=== PATIENT | male | born 1995 | race Caucasian/White ===

== ENCOUNTER 2021-03-09 16:13 | Inpatient (IN) | payer MEDICAID, SELFPAY ==
[2021-03-09 16:23] VITALS: BP 144/100; PULSE 84; RESP 18; TEMP 35.9; O2SAT 94; BMI 24.9
--- NOTE | 2021-03-09 19:56 | EX.ED.DYSGE1 ---
HPI History of Present Illness Chief Complaint: Substance Abuse Narrative Narrative: Patient went through detox for opiates about 2 years ago he was clean for about a year and then relapsed. He wants detox. He last used today, he was try to detox on his own but could not and thus used prior to arrival. [facility] Medical History (Updated 03/09/21 @ 19:[address] Arturo Calderon MD) Drug abuse, opioid type Hepatitis C Home Medications NK 08/21/19 [History Last Taken Unknown] Allergy/AdvReac Type Severity Reaction Status Date / Time No Known Allergies Allergy Verified 03/09/21 16:25 Social History Smoking Status: Current every day smoker tobacco type: cigarettes ROS ROS ED ROS Narrative Past medical history: Reviewed, significant for opiate addiction otherwise none Medications: Reviewed Social history: Noncontributory Review of systems: All systems negative except as indicated General: No fever Eyes: No visual changes ENT: No upper airway congestion, normal voice Neck: No neck pain Cardiovascular: No chest pain Respiratory: No shortness of breath or cough Gastrointestinal: No abdominal pain, nausea vomiting or diarrhea Genitourinary: No dysuria Musculoskeletal: Denies myalgias no difficulty with ambulation. He has antecubital tracks which is where he injects Skin: No rash Neurological: No memory loss, confusion or any focal weakness Psych: Slightly anxious Hematologic: No easy bleeding or easy bruising EXAM Physical Exam Narrative Exam Narrative: Physical exam General: Patient does not appear in any distress. Head: Normocephalic, Atraumatic Eyes: Conjunctiva not pale ENT: Moist mucous membranes Neck: Supple, Nontender, No lymphadenopathy Cardiovascular: Regular rate, Regular rhythm. I auscultated and there are no murmurs. Respiratory: No distress, CTA bilaterally Abdomen: Soft, Nontender, Nondistended Back: Nontender, Normal Inspection. Negative for: CVA tenderness Extremities: Antecubital regions show track iniguez, however there is no sign of infection or cellulitis. Skin: Normal color, No rash Neurological: Alert, Normal Strength, Normal Sensation Psychological: Normal affect Const Vital Signs: 03/09/21 16:23 Temperature 96.7 F L Temperature Source Temporal Pulse Rate 84 Respiratory Rate 18 Blood Pressure 144/100 H Blood Pressure Mean 114 Pulse Ox 94 Oxygen Delivery Method Room Air MDM MDM MDM Narrative Medical decision making narrative: Patient will be medically cleared now attempt to find hospital bed for him. Discharge Plan Triage Chief Complaint: Substance Abuse ED Provider: Arturo Calderon Dx/Rx/DC Orders Clinical Impression: Opiate addiction Prescriptions: No Action NK RF: 0 Primary Care Provider: Care Physician,No Primary Referrals: Care Physician,No Primary [Primary Care Provider] - Disposition Disposition: Acute Care Hospital [facility]
[2021-03-09 19:58] LABS: Absolute Lymphocyte Count 2.83 X10^3/uL (0.83-4.51); Absolute Neutrophil Count 5.1 X10^3/uL (2.0-7.7); Basophil# 0.04 X10^3/uL; Basophil% 0.4 % (0-1); Eosinophil# 0.21 X10^3/uL; Eosinophils% 2.3 % (0-5); Hematocrit 47.9 % (40-54); Hemoglobin 15.9 g/dL (13.0-16.5); Lymphocyte # 2.83 X10^3/ul (0.83-4.51); Lymphocyte % 30.6 % (19-41); Mean Corp Hgb Conc 33.2 g/dL (32-36); Mean Corpuscular Hgb 32.1 pg (27.0-32.0); Mean Corpuscular Volume 96.6 fL (80-94); Mean Platelet Vol. 10.4 fl (6.2-12.0); Monocyte# 1.09 X10^3/uL; Monocyte% 11.8 % (0-10); NRBC Flagged by Analyzer 0 % (0-5); Neutrophil # 5.07 X10^3/uL (2.7-7.7); Neutrophil % 54.7 % (47-70); Platelet Count 241 K/mm3 (150-450); RBC Distribution Width CV 11.7 % (11.6-14.6); RBC Distribution Width SD 41.6 fl (35.1-43.9); Red Blood Count 4.96 M/mm3 (4.6-6.2); White Blood Count 9.3 K/mm3 (4.4-11.0)
[2021-03-09 20:11] LABS: AST(SGOT) 29 U/L (15-37); Alanine Aminotransfer ALT/SGPT 56 U/L (16-61); Albumin, Serum 3.8 g/dL (3.2-5.0); Alkaline Phosphatase 75 U/L (45-117); Anion Gap 5 (5-15); BUN 7 mg/dL (7-18); BUN/Creat Ratio 9.1 RATIO (10-20); Calcium,Total 9.4 mg/dL (8.5-10.1); Chloride 104 mmol/L (98-107); Creatinine, Serum 0.77 mg/dL (0.70-1.30); EST Glomerular Filtration Rate 129 mL/min (>60); Est Glom Filt Rate - Afr Amer 156 mL/min (>60); Estimated Creatinine Clearance 120.66 ml/min; Glucose 95 mg/dL (74-106); Potassium 3.7 mmol/L (3.5-5.1); Protein, Total 7.8 g/dL (6.4-8.2); Sodium Level 139 mmol/L (136-145)
--- NOTE | 2021-03-09 20:34 | HP.PCM.HOS_ITS ---
HPI - General General Date of Admission: 03/09/21 Date of Service: 03/09/21 Chief Complaint: Opiate withdrawal HPI Narrative The patient is a 25 y/o M w/ PMHx: Polysubstance abuse including IV Fentanyl, Hepatitis C untreated, Tobacco use who presents to the [facility] ED on 03/09/21 w/ noted acute opiate withdrawal onset starting on day of presentation following last dose in the early evening given his worsening symptoms normally using currently least half a gram daily over the last 3 weeks since relapse with onset of dope sickness including abdominal pain/cramping, generalized body aches and pains, restlessness, agitation, nausea. Patient interested in attaining clean status and previously had been clean for approximately 1 year however he relapsed as noted over the last 3 weeks with last detox 2 years prior to current presentation. He notes that unfortunately had several events occur causing him to use drugs again. Work-up in the ED included T 96.7, heart rate 84, BP 144/100, respiratory rate 18, 94% on room air, CBC with WBC 9.3, hemoglobin 15.9, platelet 241 without marked shift, CMP unremarkable, UDS pending upon requested evaluation of patient, ethyl alcohol 4. Given noted hypoxia in the ED with oxygenation 94% requested also COVID testing be obtained to be cautious. [facility] Medical History Drug abuse, opioid type Hepatitis C Tobacco use Home Medications NK 08/21/19 [History Last Taken Unknown] Allergy/AdvReac Type Severity Reaction Status Date / Time No Known Allergies Allergy Verified 03/09/21 16:25 Family History (Updated 03/09/21 @ 21:[address] Gillian Schneider MD) Mother Anxiety and depression Cocaine abuse Alcohol abuse Father Anxiety and depression Cocaine abuse Alcohol abuse Surgical History (Updated 03/09/21 @ 21:[address] Gillian Schneider MD) No history of previous surgery Social History (Updated 03/09/21 @ 21:[address] Gillian Schneider MD) household members: family Smoking Status: Current every day smoker tobacco type: cigarettes Smoking packs per day: 1 Smoking cigarettes per day: 20.0 alcohol intake: never substance use type: IV drugs and other details: IV Fentanyl. ROS ROS Narrative Admission Review of Systems: CONSTITUTIONAL: No weight loss, fever, chills, + weakness or fatigue. HEENT: Eyes: No visual loss, blurred vision, double vision or yellow sclerae. Ears, Nose, Throat: No hearing loss, sneezing, congestion, runny nose or sore throat. SKIN: No rash or itching, lesions, wounds. CARDIOVASCULAR: No chest pain, chest pressure or chest discomfort, palpitations, edema, orthopnea, syncopal events. RESPIRATORY: No shortness of breath, cough or sputum, wheezing, hemoptysis. GASTROINTESTINAL: + anorexia, nausea, abdominal cramping, No vomiting or diarrhea, melena, BRBPR. GENITOURINARY: No dysuria, frequency, urgency or retention. NEUROLOGICAL: + Restless legs, No headache, dizziness, syncope, paralysis, ataxia, numbness or tingling in the extremities, focal weakness, change in bowel or bladder control, seizure. MUSCULOSKELETAL: + muscle, back pain, joint pain or stiffness. HEMATOLOGIC: No anemia, bleeding or bruising. LYMPHATICS: No enlarged nodes. No history of splenectomy. PSYCHIATRIC: + history of depression or anxiety. Agitation. ENDOCRINOLOGIC: No reports of sweating, cold or heat intolerance. No polyuria or polydipsia. ALLERGIES: No history of asthma, hives, eczema or rhinitis. Vital Signs Vital Signs Vital Signs: 03/09/21 16:23 Temperature 96.7 F L Temperature Source Temporal Pulse Rate 84 Respiratory Rate 18 Blood Pressure 144/100 H Blood Pressure Mean 114 Pulse Ox 94 Oxygen Delivery Method Room Air Weight Weight: 145 lb Body Mass Index (BMI) 24.9 Physical Exam Narrative Physical Examination: General: Awake, alert, oriented x 3 and cooperative, seated upright in the ED bed in no apparent distress, restless, mildly agitated. Skin: Normal color, normal turgor, no icterus, no cyanosis except various staged ecchymoses, tracks. HEENT: AT/NC, EOMI, PERRLA, mildly dry MM, no carotid bruits or JVD noted. Lungs: Diminished, greater bases, no rales, ronchi or wheezing. Heart: Mildly tachycardic with regular rhythm; no gallop, rub audible. Abdomen: Soft, mild discomfort with generalized palpation, ND, mildly hyperactive BS, no marked evidence of HSM. Extremities: No cyanosis, clubbing, or edema. Neurological: Patient awake, alert, oriented as noted, cognitive function intact; pupils equally reactive to light and accommodation, cranial nerves II- XII grossly normal, moving all 4 extremities, no focal deficits, strength preserved, mildly restless and agitated. Psychiatric: Affect appears fatigued, no acute evidence of depressive or anxiety feelings. Results Lab / Micro Data Result Diagrams: 03/09/21 19:46 03/09/21 19:46 Labs: Laboratory Results - last 24 hr 03/09/21 19:46: WBC 9.3, RBC 4.96, Hgb 15.9, Hct 47.9, MCV 96.6 H, MCH 32.1 H, MCHC 33.2, RDW Std Deviation 41.6, RDW Coeff of Fredy 11.7, Plt Count 241, MPV 10.4, Immature Gran % (Auto) 0.200, Neut % (Auto) 54.7, Lymph % (Auto) 30.6, Hall % (Auto) 11.8 H, Eos % (Auto) 2.3, Baso % (Auto) 0.4, Absolute Neuts (auto) 5.1, Absolute Lymphs (auto) 2.83, Nucleated RBC % 0 03/09/21 19:46: Sodium 139, Potassium 3.7, Chloride 104, Carbon Dioxide 30.0, Anion Gap 5, BUN 7, Creatinine 0.77, Estim Creat Clear Calc 120.66, Est GFR (MDRD) Af Amer 156, Est GFR (MDRD) Non-Af 129, BUN/Creatinine Ratio 9.1 L, Glucose 95, Calcium 9.4, Total Bilirubin 0.40, AST 29, ALT 56, Alkaline Phosphatase 75, Total Protein 7.8, Albumin 3.8, Globulin 4.0, Albumin/Globulin Ratio 1.0 03/09/21 19:46: Ethyl Alcohol 4.0 03/09/21 20:25: Ur Drug Screen Comment Assessment & Plan Assessment/Plan (1) Opiate withdrawal: PLAN: The patient is a 25 y/o M w/ PMHx: Polysubstance abuse including IV Fentanyl, Hepatitis C, Tobacco use who presents to the [facility] ED on 03/09/21 w/ noted acute opiate withdrawal onset starting on day of presentation following last dose in the early evening prior to ED presentation. 1. Acute Opiate Withdrawal: Will admit to [place], routine labs including CBC, CMP, urine for drug screen obtained in the ED, will initiate and continue on protocol with tapering course of Subutex, as needed tylenol, ibuprofen, bowel regimen, gabapentin, Bentyl, Vistaril, methocarbamol, clonidine, PRN nightly trazodone for insomnia, IV fluids, IV antiemetics. Once patient clinically improved and completion of taper nearing will plan consultation with case management for transition to next level of rehabilitation care. 2. Polysubstance Abuse, IVDA Hx, History of Hepatitis C, Chronic: Patient currently not candidate for hep C treatment currently as needs to be clean, sober x 6 months, documented attendance NA or AA meetings, counseling and ongoing negative drug screens. Patient is interested in obtaining treatment once he is able. HIV, hepatitis panel to assess for co-infection pending. Encouraged PCP establishment and follow-up. 3. Tobacco Abuse: Encouraged cessation, inpatient consultation per RT, NR if desired. 4. DVT prophylaxis: Low risk, encourage ambulation. Charges/Coding Visit Charges Inpatient E&M: 23142 Init Hosp L2
[2021-03-09 20:50] LABS: Amphetamine Urine VISTA NEGATIVE (<1000 ng/mL); Barbiturate Urine VISTA NEGATIVE (< 200 ng/mL); Benzodiazepine Urine VISTA NEGATIVE (< 200 ng/mL); Cocaine Urine VISTA NEGATIVE (< 300 ng/mL); Ecstacy Urine VISTA POSITIVE (< 500 ng/mL); Methadone Urine VISTA NEGATIVE (< 300 ng/mL); PCP Urine VISTA NEGATIVE (< 25 ng/mL); THC Urine VISTA POSITIVE (< 50 ng/mL); Vista UDS pH Range 5
[2021-03-09 21:07] VITALS: BP 140/90; PULSE 88; RESP 16; TEMP 36.2; O2SAT 95
[2021-03-09 21:35] VITALS: BMI 23.1
[2021-03-09 21:49] LABS: HIV - WCH Non-Reactive (Nonreactive)
[2021-03-09 22:01] VITALS: BP 136/86; PULSE 72; RESP 16; TEMP 36.7; O2SAT 99
--- NOTE | 2021-03-09 22:03 | PCS.PANDOC ---
PANDEMIC DOCUMENTATION INITIATED: Date: 12/02/2020 Time: 190
--- NOTE | 2021-03-09 22:03 | PCS.PANDOC ---
PANDEMIC DOCUMENTATION INITIATED: Date: 12/02/2020 Time: 190
[2021-03-09] MEDS: traZODone 100 MG Tablet PO (23:39)
[2021-03-10] VITALS (7 sets, daily range): BP systolic 84–108; BP diastolic 44–64; PULSE 67–78; RESP 14–16; TEMP 36.4–37.2; O2SAT 98–100
[2021-03-10] MEDS: Methocarbamol 750 MG Tablet 1500 MG PO (05:23)
--- NOTE | 2021-03-10 07:43 | PCM.PN.HOSP ---
Subjective Subjective Patient tremors become better. Uses IV opioids. History of chronic hepatitis C. Objective Data Objective Data Vital Signs: Vital Signs Temp Pulse Resp BP Pulse Ox 97.5 F L 73 16 107/62 100 03/10/21 07:28 03/10/21 07:28 03/10/21 07:28 03/10/21 07:28 03/10/21 07:28 Oxygen Delivery Method Room Air Weight: 134 lb 14.766 oz Body Mass Index (BMI) 23.1 Intake & Output: Intake and Output for Last 24 Hours 03/08/21 03/09/21 03/10/21 23:59 23:59 23:59 Intake Total 220 / 220 Balance 220 / 220 Lab / Micro Data Result Diagrams: 03/09/21 19:46 03/09/21 19:46 Labs: Laboratory Results - last 24 hr 03/09/21 19:46: WBC 9.3, RBC 4.96, Hgb 15.9, Hct 47.9, MCV 96.6 H, MCH 32.1 H, MCHC 33.2, RDW Std Deviation 41.6, RDW Coeff of Fredy 11.7, Plt Count 241, MPV 10.4, Immature Gran % (Auto) 0.200, Neut % (Auto) 54.7, Lymph % (Auto) 30.6, [place] % (Auto) 11.8 H, Eos % (Auto) 2.3, Baso % (Auto) 0.4, Absolute Neuts (auto) 5.1, Absolute Lymphs (auto) 2.83, Nucleated RBC % 0 03/09/21 19:46: Sodium 139, Potassium 3.7, Chloride 104, Carbon Dioxide 30.0, Anion Gap 5, BUN 7, Creatinine 0.77, Estim Creat Clear Calc 120.66, Est GFR (MDRD) Af Amer 156, Est GFR (MDRD) Non-Af 129, BUN/Creatinine Ratio 9.1 L, Glucose 95, Calcium 9.4, Total Bilirubin 0.40, AST 29, ALT 56, Alkaline Phosphatase 75, Total Protein 7.8, Albumin 3.8, Globulin 4.0, Albumin/Globulin Ratio 1.0 03/09/21 19:46: Ethyl Alcohol 4.0 03/09/21 20:25: Urine Opiates Screen POSITIVE H, Urine Methadone Screen NEGATIVE, Ur Barbiturates Screen NEGATIVE, Ur Phencyclidine Scrn NEGATIVE, Ur Amphetamines Screen NEGATIVE, U Methamphetamin-MDMA POSITIVE H, U Benzodiazepines Scrn NEGATIVE, Urine Cocaine Screen NEGATIVE, U Cannabinoids Screen POSITIVE H, Ur Drug Screen Comment 03/09/21 20:48: HIV 1&2 Antibody Non-Reactive Micro: Microbiology 03/09/21 20:48 Nasal Secretion SARS-CoV-2 Antigen (Rapid) - Final Physical Exam Narrative Denies abdominal pain. General: Alert, Oriented x3, Cooperative HEENT: Atraumatic, PERRLA, EOMI, Normocephalic Oral: No Gingival or Mucosal Lesions/ Ulcerations Neck: Supple, No JVD, Negative Carotid Bruits Lungs: Air entry equal in bilateral lung bases. No crepitation/rhonchi Cardiovascular: Regular rate, Regular Rhythm, Normal S1, Normal S2, No murmurs Abdomen: Bowel Sounds Present, Soft, Non Tender, Non-Distended : No renal angle tenderness. No suprapubic tenderness. Extremities: No edema, Capillary Refill Less than 3 Seconds Skin: No rashes, No breakdown Musculoskeletal: No Tenderness to Palpation of Joints or Extremities Neurological: Cranial nerves II-XII grossly intact, DTR 2+/4 and Symmetrical, Neuro grossly intact Psych/Mental Status: Normal Affect, Appropriate. Assessment & Plan Assessment/Plan (1) Opiate withdrawal: PLAN: The patient is a 25 y/o M w/ PMHx: Polysubstance abuse including IV Fentanyl, Hepatitis C, Tobacco use who presents to the [facility] ED on 03/09/21 w/ noted acute opiate withdrawal onset starting on day of presentation following last dose in the early evening prior to ED presentation. 1. Acute Opiate Withdrawal with history of chronic opioid use and dependence: Patient is on buprenorphine as per protocol along with other adjunctive medications. 180 to follow. 2. Polysubstance Abuse, with chronic marijuana use and dependence, methamphetamine use and dependence: Patient has history of chronic hepatitis C. HIV screening test is negative. Follow-up PCP as an outpatient. 3. Tobacco Abuse: Encouraged tobacco cessation. 4. DVT prophylaxis: Low risk, encourage ambulation. Charges/Coding Visit Charges Inpatient E&M: 86139 Subs Hosp L2
[2021-03-10] MEDS: hydrOXYzine PAM 25 MG Capsule 50 MG PO (10:34)
[2021-03-10] MEDS: Ibuprofen 600 MG Tablet PO (10:34)
[2021-03-10] MEDS: cloNIDine HCl 0.1 MG Tablet PO (10:34)
--- NOTE | 2021-03-10 10:53 | ADDICTION ---
This check writer met with PT to conduct ASAM, MSE, DUDIT assessments and to plan for d/c. PT A+Ox4 and participated actively. All assessments completed, faxed to [facility] and placed in PT's chart. PT plans to f/u with individual counselor at [facility] for outpatient counseling services. PT did not indicate a need for transportation post d/c from [facility].
[2021-03-10] MEDS: traZODone 100 MG Tablet PO (21:55)
[2021-03-11 03:18] VITALS: BP 108/57; PULSE 63; RESP 17; TEMP 36.6; O2SAT 97
--- NOTE | 2021-03-11 08:22 | NURSING ---
In to patient's room and he states he wants to leave. This RN offered to have Dr. Hickey come up and see him and they could talk about discharge but he states he just wants to sign out AMA. He states he has to go to work and needs to leave. AMA papers were signed. His totes were opened. The hospital phone was provided so he could make a call for a ride. Dr. Hickey was made aware of situation and he did come up and visit the patient but he still wants to leave AMA.
--- NOTE | 2021-03-11 09:07 | PCM.DC.SUM ---
Providers Date of Admission: 03/09/21 Primary Care Physician: Lian Primary Care Phys Reason For Visit: OPIATE WITHDRAWAL Diagnosis Discharge Diagnosis (1) Opiate withdrawal: Status: Acute Code(s): F11.23 - Opioid dependence with withdrawal Medications at Discharge Home Medications NK 08/21/19 Hospital Course Summary of Care Provided Hospital Course: The patient is a 25 y/o M with history of polysubstance abuse including IV Fentanyl, Hepatitis C, Tobacco use who presents to the [facility] ED on 03/09/21 w/ noted acute opiate withdrawal onset starting on day of presentation following last dose in the early evening prior to ED presentation. 1. Acute Opiate Withdrawal with history of chronic opioid use and dependence: Patient is on buprenorphine as per protocol along with other adjunctive medications. The patient has appointment to follow-up with 180 on Wednesday 2. Polysubstance Abuse, with chronic marijuana use and dependence, methamphetamine use and dependence: Patient has history of chronic hepatitis C. HIV screening test is negative. Follow-up PCP as an outpatient. 3. Tobacco Abuse: Encouraged tobacco cessation. 4. DVT prophylaxis: Low risk, encourage ambulation Patient signed AMA. He knows the risk of signing AMA and want against it but still signed AMA. Advised to follow with [facility] on Wednesday. Physical Exam Narrative Seen and examined Patient wants to sign AMA. He wants to go and work. I urged him to complete the opioid withdrawal treatment but he refused. General: Alert, Oriented x3, Cooperative HEENT: Atraumatic, PERRLA, EOMI, Normocephalic Oral: No Gingival or Mucosal Lesions/ Ulcerations Neck: Supple, No JVD, Negative Carotid Bruits Lungs: Air entry equal in bilateral lung bases. No crepitation/rhonchi Cardiovascular: Regular rate, Regular Rhythm, Normal S1, Normal S2, No murmurs Abdomen: Bowel Sounds Present, Soft, Non Tender, Non-Distended : No renal angle tenderness. No suprapubic tenderness. Extremities: No edema, Capillary Refill Less than 3 Seconds Skin: No rashes, No breakdown Musculoskeletal: No Tenderness to Palpation of Joints or Extremities Neurological: Cranial nerves II-XII grossly intact, DTR 2+/4 and Symmetrical, Neuro grossly intact Psych/Mental Status: Normal Affect, Appropriate. Weight / BMI Weight Weight: 134 lb 14.766 oz Body Mass Index (BMI) 23.1 ABG / Lab / Microbiology Data Result Diagrams: 03/09/21 19:46 03/09/21 19:46 Microbiology: Microbiology 03/09/21 20:48 Nasal Secretion SARS-CoV-2 Antigen (Rapid) - Final Meaningful Use Info Meaningful Use Diagnoses (Choose all that apply): None applicable Discharge Plan Admission Admit Date/Time: 03/09/21 20:36 Attending Provider: Selwyn Hickey Primary Care Provider: Care Physician,No Primary Discharge Orders/Prescriptions Prescriptions: No Action NK RF: 0 Referrals / Follow Up: Care Physician,No Primary [Primary Care Provider] - Charges/Coding Visit Charges Inpatient E&M: 75209 Disch Hosp
== END 2021-03-11 08:35 | disposition left against medical advice (07) | DRG 770 ==
LOC: ED 19:58 → MS3 20:47
PROVIDERS: Admitting Provider Family Medicine; Emergency Provider Emergency Medicine; Visit Provider Internal Medicine
DX: F11.23 Opioid dependence with withdrawal (principal); B18.2 Chronic viral hepatitis C; F12.20 Cannabis dependence, uncomplicated; F15.20 Other stimulant dependence, uncomplicated; R09.02 Hypoxemia; Z53.29 Procedure and treatment not carried out because of patient's decision for other reasons; F17.210 Nicotine dependence, cigarettes, uncomplicated
CPT/HCPCS: 36415; 80053; 80307; 82077; 85025; 86703; 86704; 86705; 86706; 86707; 86803; 87340; 87350; 87426; 99285; 99406

== ENCOUNTER 2021-04-27 12:14 | Emergency (ER) | payer MEDICAID, SELFPAY ==
[2021-04-27 12:15] VITALS: BP 134/95; PULSE 107; RESP 18; TEMP 36.8; O2SAT 97; BMI 25.7
--- NOTE | 2021-04-27 12:40 | EX.ED.DYSGE1 ---
HPI History of Present Illness Chief Complaint: Cold Sx Detail of Chief Complaint: Cough, earache, and sore throat Informant: patient Narrative Narrative: Patient presents with symptoms of cough, sore throat, and earache x4 days. Patient states that he has lost his ability to taste well. His significant other also was sick with similar illness but feels better. Patient has been vaccinated against COVID but has not had a booster. He denies fever. Patient has no medical history otherwise. Patient states that he started a new job and somebody at work from COVID-19 PFSH PFS Medical History Drug abuse, opioid type Hepatitis C Tobacco use Home Medications amoxicillin 500 mg PO TID #30 tab 04/27/21 [Rx Last Taken Unknown] Allergy/AdvReac Type Severity Reaction Status Date / Time No Known Allergies Allergy Verified 04/27/21 12:17 Family History (Updated 03/09/21 @ 21:[address] Gillian Schneider MD) Mother Anxiety and depression Cocaine abuse Alcohol abuse Father Anxiety and depression Cocaine abuse Alcohol abuse Surgical History No history of previous surgery Social History (Updated 03/09/21 @ 21:[address] Gillian Schneider MD) household members: family Smoking Status: Current every day smoker tobacco type: cigarettes alcohol intake: never substance use type: IV drugs and other details: IV Fentanyl. ROS ROS ED Constitutional Constitutional ED: Reports systems reviewed and no addt'l complaints, except as documented; Denies body ache(s), change in weight or chills Eyes Eyes: Denies acute decrease in peripheral vision, change in vision, double vision or loss of vision ENT ENT ED: Reports none, ear pain and sore throat; Denies lip swelling, loss taste/smell, neck pain or otalgia Cardiovascular Cardiovascular: Reports none; Denies abdominal pain, chest pain with activity, leg edema, lightheadedness, palpitations, rapid heart rate or syncope Respiratory/Chest Respiratory/Chest: Reports none and dry cough; Denies change in mental status, dyspnea, hemoptysis, shortness of breath at rest or shortness of breath with exertion Gastrointestinal Gastrointestinal: Reports none; Denies abdominal pain, change in stool character, diarrhea, hematemesis, hematochezia, melena, rectal bleeding or vomiting Genitourinary Genitourinary ED: Reports none; Denies abdominal discomfort, anuria, dysuria, genital pain or polyuria Musculoskeletal Musculoskeletal: Reports none; Denies arthralgias, back pain, difficulty walking, extremity pain, muscle weakness or myalgias Integumentary Reports none; Denies abscess or rash Neurologic Neurologic: Reports none; Denies abnormal gait, confusion, focal weakness, frequent falls, headache(s), loss of vision, numbness, paresthesias, radicular pain, vertigo or weakness Psychiatric Psychiatric: Reports systems reviewed and no addt'l complaints, except as documented and none; Denies behavioral changes, confusion, difficulty concentrating, hallucinations, suicidal ideation, tactile hallucinations or visual hallucinations Endocrine Endocrinology: Denies none, cold intolerance, excessive sweating, fatigue or heat intolerance Hematologic/Lymphatic Hematologic/Lymphatic: Reports none; Denies anemia, easy bleeding or easy bruising Allergic/Immunologic Allergic/Immunologic ED: Denies as per HPI, none, lip swelling, mouth swelling, throat swelling, tongue swelling or hives EXAM Physical Exam Const Vital Signs: 04/27/21 12:15 Temperature 98.2 F Temperature Source Temporal Pulse Rate 107 H Respiratory Rate 18 Blood Pressure 134/95 H Blood Pressure Mean 108 Pulse Ox 97 Oxygen Delivery Method Room Air Positive well nourished and well developed General Appearance ED: well developed and NAD HEENT Reports moist mucous membranes HEENT Narrative: Right TM erythematous, dull, difficult to visualize landmarks. Pharynx is nonerythematous without exudate. Uvula midline. No trismus normocephalic and atraumatic; Negative for trauma or tenderness Eyes PERRL and EOMs intact bilaterally General Eye ED: Negative for pale conjunctiva or scleral icterus Neck no lymphadenopathy, supple and no JVD General: Negative for tenderness Chest Wall inspection of chest normal and palpation of chest normal Chest: Negative for tenderness Resp normal respiratory effort and clear to auscultation bilaterally Effort and Inspection: Negative for respiratory distress or pain with movement Auscultation: Negative for rhonchi, wheezes or diminished lung sounds Cardio regular rate, regular rhythm, S1 normal heart sound, S2 normal heart sound and no murmurs Peripheral Pulses: pulses 2+ throughout GI normal to inspection, nondistended, normoactive bowel sounds, soft to palpation, non-tender, non-distended and no masses Back/Spine no CVA tenderness and no thoracic nor lumbar tenderness Extremity normal to inspection General Extremety ED: Negative for edema General Extremity: Negative for edema Neuro oriented x3, CN's II-XII intact bilaterally, no sensory deficits noted and gait normal Sensorium / Orientation: awake, alert, oriented to person, oriented to place and oriented to time Motor Exam: strength 5/5 throughout and strength abnormal Psych mental status grossly normal Skin no rashes or lesions noted and no wounds MDM MDM MDM Narrative Medical decision making narrative: Rapid COVID test was negative. Patient does have signs of right otitis media. I will start him on amoxicillin. He was given a dose of ibuprofen. Patient to follow-up with his primary care physician 3 to 5 days. Lab Data Attestation: I reviewed the patient's lab results. Discharge Plan Triage Chief Complaint: Cold Sx ED Provider: Brian Byrd Dx/Rx/DC Orders Clinical Impression: Otitis media, Viral URI Instructions: ED Otitis Media Antibiotic ..., ED URI, Viral, No Abx (Adult) Prescriptions: New amoxicillin 500 MG tablet 500 mg PO TID Qty: 30 RF: 0 Primary Care Provider: Care Physician,No Primary Referrals: Winnie Ceron MD [STAFF PHYSICIAN] - 3-5 Days Care Physician,No Primary [Primary Care Provider] - Disposition Disposition: Home, Self Care
[2021-04-27] MEDS: Ibuprofen 600 MG Tablet PO (13:42)
[2021-04-27] MEDS: AMOXICILLIN 500 MG CAPSULE PO (13:42)
[2021-04-27 13:43] VITALS: RESP 16
== END 2021-04-27 13:44 | disposition home or self-care (01) ==
PROVIDERS: Emergency Provider Emergency Medicine; Visit Provider Emergency Medicine
DX: J06.9 Acute upper respiratory infection, unspecified (principal); H66.91 Otitis media, unspecified, right ear; F17.210 Nicotine dependence, cigarettes, uncomplicated
CPT/HCPCS: 87426; 99283